=== PATIENT | male | born 1985 | race Caucasian/White ===

== ENCOUNTER → 2017-10-11 09:56 | Outpatient (CLI) | payer MEDICARE, SELFPAY ==
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
== END ==
PROVIDERS: Visit Provider Orthopaedic Surgery
DX: S62.102A Fracture of unspecified carpal bone, left wrist, initial encounter for closed fracture (principal)
CPT/HCPCS: 73110

== ENCOUNTER 2019-08-07 11:10 | Emergency (ER) | payer MEDICARE, SELFPAY ==
[2019-08-07 11:11] VITALS: BP 135/83; PULSE 96; RESP 16; TEMP 36.2; O2SAT 95; BMI 31.8
--- NOTE | 2019-08-07 11:16 | ED.DCSUM_ITS ---
History of Present Illness Chief Complaint: Abscess Informant: Patient Onset: Days Context: Gradual Onset Timing: Continuous Current Severity: Moderate Maximum Severity: Moderate Narrative: The patient is an otherwise healthy male with history of hypertension who presents to the emergency department with abdominal wall abscess. Patient states he felt like he had a hair that was ingrown. He tried to pick it out. Since then, the area is gotten more red. He said some scant drainage from it. He denies any fevers or chills. He has no history of immunosuppression or diabetes. He is otherwise been in his normal state of health. Prior similar symptoms: No Recent Illness/Hospitalization: No Past Medical History - Allergies and Home Meds Allergies/Adverse Reactions: Allergies No Known Allergies Allergy (Verified 08/07/19 11:11) Primary Care Physician: Care Physician,No Primary [Primary Care Provider] - Prior records reviewed: Yes Past Medical History: - - Hypertension Surgical History: no surgical history Smoking Status: Current every day smoker Review of Systems General: Denies: Chills, Fever, Sweats Eyes: Denies: Visual changes - bilaterally, Diplopia ENT: Denies: Rhinorrhea, Sore throat Cardiovascular: Denies: Chest pain, Palpitations Respiratory: Denies: Dyspnea, Cough, Dyspnea on exertion Gastrointestinal: Denies: Abdominal pain, Nausea, Vomiting, Diarrhea, Melena, Hematochezia Genitourinary: Denies: Dysuria, Hematuria, Frequency Musculoskeletal: Denies: Back pain, Extremity Pain Skin: Denies: Rash, Wounds Neurological: Denies: Headache, Weakness, Numbness Physical Exam Vital Signs/Narrative: Vital Signs Temp Pulse Resp BP Pulse Ox 08/07/19 11:11 97.2 F L 96 16 135/83 H 95 Inital Vital Signs reviewed: Yes General: Well nourished, Well developed, No Acute Distress Head: Normocephalic, Atraumatic Eyes: Perrl, EOMI ENT: Moist mucous membranes, No rhinorrhea Neck: Supple, Nontender Cardiovascular: Regular rate, Regular rhythm, No murmurs Respiratory: No distress, CTA bilaterally, Chest nontender Abdomen: Soft, Nondistended, Normal bowel sounds, Tender, - - Small 2 cm ovoid abscess in the right lower lateral aspect of the abdomen. Minimal surrounding cellulitis. No streaking. Back: Nontender, Normal Inspection Extremities: Nontender, No edema Skin: Normal color, No rash Neurological: Alert, Oriented x3, Cranial nerves II-XII grossly intact, Normal Strength, Normal Sensation Psychological: Normal affect, Normal Mood Diagnostic/Tx/Re-eval - Medical Decision Making The patient presents with abdominal wall abscess. There is some mild surr ounding cellulitis. He has no significant tenderness. He has no history of immunosuppression. Incision and drainage was performed and scant purulence was able to removed. The patient be started on Bactrim for the area of localized cellulitis. He was counseled on concerning symptoms and reasons to return. He was counseled to follow-up with his primary care physician in the next 24 to 48 hours for wound recheck or return to the emergency department if he has any worsening symptoms or is not improving. He is comfortable with this plan of care. Impression 1. 2 cm abdominal wall abscess with cellulitis 2. Incision and drainage Procedures Procedure(s): Incision and drainage was performed. The area was prepped with chlorhexidine. A total of 3 cc of lidocaine with epinephrine were injected in a stepwise fashion at the area of central fluctuance. 1 cm incision was made. Scant purulence was able to be expressed. The wound was explored. It was a shallow pocket that would not hold packing. The patient tolerated this without issue. ED Disposition - Plan for ED Patient: Instructions: ABSCESS, Incision and Drainage Prescriptions: Smz/Tmp Ds [Bactrim Ds] 1 tab PO BID #14 tab Prescription Printed Referrals: Care Physician,No Primary [Primary Care Provider] -
--- NOTE | 2019-08-07 11:56 | ED.RN ---
DISCHARGE INSTRUCTIONS GIVEN TO AND REVIEWED WITH PATIENT AND MOTHER, BOTH DENY QUESTIONS OR CONCERNS AND VOICE UNDERSTANDING OF DISCHARGE INSTRUCTIONS. PT AMBULATES OUT OF ROOM WITHOUT DIFFICULTY.
== END 2019-08-07 11:57 | disposition home or self-care (01) ==
LOC: ED 11:38
PROVIDERS: Emergency Provider Emergency Medicine
DX: L02.211 Cutaneous abscess of abdominal wall (principal); L03.311 Cellulitis of abdominal wall; I10 Essential (primary) hypertension; F17.200 Nicotine dependence, unspecified, uncomplicated; Z79.899 Other long term (current) drug therapy
CPT/HCPCS: 10060; 99283

== ENCOUNTER → 2020-09-02 08:04 | Outpatient (CLI) | payer MEDICARE, SELFPAY ==
[2020-09-02 08:31] LABS: Absolute Lymphocyte Count 1.51 X10^3/uL (0.83-4.51); Basophil# 0.05 X10^3/uL; Eosinophil# 0.12 X10^3/uL; Eosinophils% 2.3 % (0-5); Hematocrit 46.5 % (40-54); Lymphocyte # 1.51 X10^3/ul (4.0); Lymphocyte % 29.2 % (19-41); Mean Corp Hgb Conc 32.3 g/dL (32-36); Mean Corpuscular Volume 89.9 fL (80-94); Mean Platelet Vol. 9.4 fl (6.2-12.0); Monocyte# 0.52 X10^3/uL; NRBC Flagged by Analyzer 0 % (0-5); Neutrophil # 2.96 X10^3/uL (2.7-7.7); Neutrophil % 57.1 % (47-70); Platelet Count 252 K/mm3 (150-450); RBC Distribution Width CV 12.9 % (11.6-14.6); RBC Distribution Width SD 42.6 fl (35.1-43.9); Red Blood Count 5.17 M/mm3 (4.6-6.2); White Blood Count 5.2 K/mm3 (4.4-11.0)
[2020-09-02 09:03] LABS: AST(SGOT) 54 U/L (15-37); Alanine Aminotransfer ALT/SGPT 75 U/L (16-61); Alkaline Phosphatase 57 U/L (45-117); Anion Gap 3 (5-15); BUN 20 mg/dL (7-18); BUN/Creat Ratio 27.6 RATIO (10-20); Calcium,Total 8.9 mg/dL (8.5-10.1); Chloride 109 mmol/L (98-107); Cholesterol 110 mg/dL (200); Creatinine, Serum 0.72 mg/dL (0.70-1.30); EST Glomerular Filtration Rate 131 mL/min (>60); Est Glom Filt Rate - Afr Amer 159 mL/min (>60); Globulin 3.9 g/dL (2.2-4.2); Glucose 82 mg/dL (74-106); High Density Lipoprotein 22 mg/dL; Protein, Total 7.9 g/dL (6.4-8.2); Sodium Level 140 mmol/L (136-145); Triglycerides 106 mg/dL; Very Low Density Lipoprotein 21 mg/dL (5-40)
[2020-09-02 09:25] LABS: Vitamin D,25 Hydroxy 24.2 ng/mL
[2020-09-03 16:29] LABS: GGTP 18 U/L (15-85)
[2020-09-04 09:25] LABS: Hepatitis B Surface Antigen Non-Reactive (Nonreactive); Hepatitis C Antibody Non-Reactive (Nonreactive)
[2020-09-08 16:08] LABS: Endomysial Antibody IgA Negative (Negative)
[2020-09-08 16:33] LABS: Immunoglobulin A 220 mg/dL (90-386); t-Transglutaminase IgA <2 U/mL (0-3)
== END ==
DX: I10 Essential (primary) hypertension (principal); F17.200 Nicotine dependence, unspecified, uncomplicated; E55.9 Vitamin D deficiency, unspecified
CPT/HCPCS: 36415; 80053; 80061; 82306; 82784; 82977; 83516; 85025; 86255; 86803; 87340

== ENCOUNTER → 2020-10-03 10:07 | Outpatient (CLI) | payer MEDICARE, SELFPAY ==
[2020-10-03 11:22] LABS: AST(SGOT) 57 U/L (15-37); Alanine Aminotransfer ALT/SGPT 64 U/L (16-61); Albumin, Serum 3.9 g/dL (3.2-5.0); Alkaline Phosphatase 52 U/L (45-117); Bilirubin, Direct 0.13 mg/dL (0.00-0.30); Globulin 3.8 g/dL (2.2-4.2); Protein, Total 7.7 g/dL (6.4-8.2)
== END ==
PROVIDERS: Visit Provider Family Medicine
DX: R94.5 Abnormal results of liver function studies (principal)
CPT/HCPCS: 36415; 80076

== ENCOUNTER → 2020-11-10 08:34 | Outpatient (CLI) | payer MEDICARE, SELFPAY ==
[2020-11-10 11:39] LABS: AST(SGOT) 73 U/L (15-37); Alanine Aminotransfer ALT/SGPT 74 U/L (16-61)
== END ==
DX: R94.5 Abnormal results of liver function studies (principal)
CPT/HCPCS: 36415; 84450; 84460

== ENCOUNTER → 2020-11-27 07:32 | Outpatient (CLI) | payer MEDICARE, SELFPAY ==
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
== END ==
DX: R74.8 Abnormal levels of other serum enzymes (principal)
CPT/HCPCS: 76700

== ENCOUNTER → 2020-12-23 09:46 | Outpatient (CLI) | payer MEDICARE, SELFPAY | DX: R15.9 Full incontinence of feces (principal) | CPT/HCPCS: 82274 ==

== ENCOUNTER → 2021-01-14 09:52 | Outpatient (CLI) | payer MEDICARE, MEDICAID, SELFPAY ==
--- NOTE | 2021-01-14 09:57 | RAD_ITS ---
STUDY: X-RAY - LUMBAR SPINE REASON FOR EXAM: Male, 35 years old. LOW BACK PAIN TECHNIQUE: 3 view(s) of the lumbar spine were obtained. COMPARISON: Comparison is made with prior study dated 09/17/2016. FINDINGS: Normal lumbar lordosis. There is no substantial scoliosis. There is a normal alignment of the vertebrae. Normal vertebral bodies and endplates. Mild disc space narrowing at the L5-S1 and S1-S2 levels. Partial lumbarization of the S1 vertebrae. The soft tissue structures are unremarkable. RAD/Lumbar Spine 2 or 3 Views IMPRESSION: Degenerative changes of the spine, as detailed above. Electronically Signed: Gustavo Mortensen MD at 9:26 EDT , Service support ,
== END ==
DX: M54.5 Low back pain (principal)
CPT/HCPCS: 72100

== ENCOUNTER → 2021-01-31 14:45 | Outpatient (CLI) | payer MEDICARE, SELFPAY ==
[2021-01-31 15:56] LABS: T4 Free Direct 1.05 ng/dL (0.76-1.46); Thyroid Stim Hormone (TSH) 1.16 uIU/mL (0.358-3.74)
== END ==
PROVIDERS: Visit Provider Nurse Practitioner Adult Health
DX: R15.9 Full incontinence of feces (principal)
CPT/HCPCS: 36415; 84439; 84443

== ENCOUNTER → 2021-02-11 07:40 | Outpatient (CLI) | payer MEDICARE, MEDICAID, SELFPAY ==
--- NOTE | 2021-02-11 07:44 | CT_ITS ---
STUDY: CT LUMBAR SPINE WITH CONTRAST REASON FOR EXAM: Male, 35 years old. FULL INCONTINENCE OF FECES RADIATION DOSAGE (If Supplied By Facility): CTDIvol = ( 15.21 ) mGy, DLP = ( 441.88 ) mGycm TECHNIQUE: The patient was scanned in a multi detector CT scanner. High resolution transaxial imaging was performed following the intravenous administration of IV 100mL Isovue-300. Images were obtained from L1 to S1 vertebral level. Sagittal and coronal images were reconstructed. Individualized dose optimization techniques were used for this CT. COMPARISON: Comparison is made with prior radiographs dated 01/14/2021. FINDINGS: Normal lumbar lordosis. There is no substantial scoliosis. Normal vertebrae of the lumbar spine. L1-2: Normal endplates. Normal disc height and morphology. Normal bilateral facet joints. Normal central canal and bilateral lateral recesses. Normal bilateral intervertebral neural foramina. L2-3: Moderate size diffuse posterior disc bulge causing deformity of thecal sac and narrowing of the AP diameter of the canal. L3-4: Normal endplates. Normal disc height and morphology. Normal bilateral facet joints. Normal central canal and bilateral lateral recesses. Normal bilateral intervertebral neural foramina. L4-5: Mild degree of disc space narrowing at the L4-L5 level with the posterior spondylosis. This is slightly worse on the left side of midline with minimal compression of the thecal sac. L5-S1: Normal endplates. Normal disc height and morphology. Normal bilateral facet joints. Normal central canal and bilateral lateral recesses. Normal bilateral intervertebral neural foramina. Normal visualized paraspinous soft tissue structures. CT/Spine Lumbar WITH Contrast IMPRESSION: Moderate sized posterior disc bulge at the L2-L3 level causing moderate degree of narrowing of the spinal canal. Mild degree of disc space narrowing with posterior spondylosis worse on the left side of the midline. Electronically Signed: Gustavo Mortensen MD at 11:06 EDT , Service support ,
== END ==
PROVIDERS: PCP Nurse Practitioner Adult Health; Referring Provider Nurse Practitioner Adult Health; Visit Provider Nurse Practitioner Adult Health
DX: R15.9 Full incontinence of feces (principal)
CPT/HCPCS: 72132; Q9967

== ENCOUNTER → 2021-02-24 10:04 | Outpatient (CLI) | payer MEDICARE, MEDICAID, SELFPAY ==
[2021-02-24 11:24] LABS: AST(SGOT) 53 U/L (15-37); Alanine Aminotransfer ALT/SGPT 64 U/L (16-61); Alkaline Phosphatase 44 U/L (45-117)
== END ==
PROVIDERS: PCP Nurse Practitioner Adult Health; Referring Provider Nurse Practitioner Adult Health; Visit Provider Nurse Practitioner Adult Health
DX: R15.9 Full incontinence of feces (principal)
CPT/HCPCS: 36415; 84075; 84450; 84460

== ENCOUNTER → 2021-04-13 10:15 | Outpatient (CLI) | payer MEDICARE, MEDICAID, SELFPAY ==
[2021-04-13 11:16] LABS: Iron 152 ug/dL (65-175); Iron Binding Capacity,Total 476 ug/dL (250-450)
[2021-04-14 14:09] LABS: ANTINUCLEAR ANTIBODIES DIRECT Negative (Negative)
[2021-04-14 15:25] LABS: Alpha Antitrypsin Serum 148 mg/dL (95-164)
[2021-04-14 17:27] LABS: EBV Early Antigen IgG <9.0 U/mL (0.0-8.9); EBV-VCA IgG 30.4 U/mL (0.0-17.9)
== END ==
DX: R74.8 Abnormal levels of other serum enzymes (principal)
CPT/HCPCS: 36415; 82103; 83540; 83550; 86038; 86663; 86665

== ENCOUNTER 2021-04-20 09:27 | Emergency (ER) | payer MEDICARE, MEDICAID, SELFPAY ==
[2021-04-20 09:28] VITALS: BP 146/97; PULSE 108; RESP 16; TEMP 36.1; O2SAT 96; BMI 32.2
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
[2021-04-20 09:58] VITALS: PULSE 64; RESP 16
== END 2021-04-20 09:59 | disposition home or self-care (01) ==
LOC: ED 09:47
PROVIDERS: Emergency Provider Emergency Medicine
DX: S80.12XA Contusion of left lower leg, initial encounter (principal); V19.9XXA Pedal cyclist (driver) (passenger) injured in unspecified traffic accident, initial encounter; Y93.55 Activity, bike riding; Y92.9 Unspecified place or not applicable; Y99.9 Unspecified external cause status; I10 Essential (primary) hypertension; Z79.899 Other long term (current) drug therapy; F17.200 Nicotine dependence, unspecified, uncomplicated
CPT/HCPCS: 99282

== ENCOUNTER → 2021-07-27 08:56 | Outpatient (CLI) | payer MEDICARE, MEDICAID, SELFPAY ==
[2021-07-27 09:52] LABS: AST(SGOT) 36 U/L (15-37); Alanine Aminotransfer ALT/SGPT 47 U/L (16-61); Alkaline Phosphatase 47 U/L (45-117)
== END ==
PROVIDERS: Referring Provider Nurse Practitioner Adult Health; Visit Provider Nurse Practitioner Adult Health
DX: R15.9 Full incontinence of feces (principal)
CPT/HCPCS: 36415; 84075; 84450; 84460

== ENCOUNTER 2021-08-03 18:49 | Emergency (ER) | payer MEDICARE, MEDICAID, SELFPAY ==
[2021-08-03 18:51] VITALS: BP 153/97; PULSE 85; RESP 16; TEMP 36.8; O2SAT 94; BMI 33.2
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
[2021-08-03 21:04] VITALS: RESP 16
[2021-08-03 21:07] VITALS: BP 149/91; PULSE 74; RESP 20
[2021-08-03] MEDS: HYDROcodone Bitartrate/Apap 5/325 Tablet PO (21:08)
== END 2021-08-03 21:16 | disposition home or self-care (01) ==
LOC: ED 21:15
PROVIDERS: Emergency Provider Emergency Medicine; PCP Nurse Practitioner Adult Health
DX: S42.91XA Fracture of right shoulder girdle, part unspecified, initial encounter for closed fracture (principal); F17.210 Nicotine dependence, cigarettes, uncomplicated; I10 Essential (primary) hypertension; V13.4XXA Pedal cycle driver injured in collision with car, pick-up truck or van in traffic accident, initial encounter; Z79.899 Other long term (current) drug therapy
CPT/HCPCS: 73030; 73060; 99283

== ENCOUNTER 2021-12-04 09:46 | Outpatient (CLI) | payer MEDICARE, MEDICAID, SELFPAY ==
[2021-12-04 10:07] LABS: Absolute Lymphocyte Count 2.21 X10^3/uL (0.83-4.51); Absolute Neutrophil Count 3.5 X10^3/uL (2.0-7.7); Basophil# 0.06 X10^3/uL; Basophil% 0.9 % (0-1); Eosinophil# 0.17 X10^3/uL; Eosinophils% 2.6 % (0-5); Hematocrit 44.3 % (40-54); Hemoglobin 15.1 g/dL (13.0-16.5); Lymphocyte # 2.21 X10^3/ul (0.83-4.51); Lymphocyte % 33.2 % (19-41); Mean Corp Hgb Conc 34.1 g/dL (32-36); Mean Corpuscular Hgb 29.4 pg (27.0-32.0); Mean Corpuscular Volume 86.2 fL (80-94); Mean Platelet Vol. 9.4 fl (6.2-12.0); Monocyte# 0.72 X10^3/uL; Monocyte% 10.8 % (0-10); NRBC Flagged by Analyzer 0 % (0-5); Neutrophil # 3.48 X10^3/uL (2.7-7.7); Neutrophil % 52.2 % (47-70); Platelet Count 251 K/mm3 (150-450); RBC Distribution Width CV 12.9 % (11.6-14.6); RBC Distribution Width SD 40.6 fl (35.1-43.9); Red Blood Count 5.14 M/mm3 (4.6-6.2); White Blood Count 6.7 K/mm3 (4.4-11.0)
[2021-12-04 11:13] LABS: AST(SGOT) 61 U/L (15-37); Alanine Aminotransfer ALT/SGPT 72 U/L (16-61); Albumin, Serum 3.8 g/dL (3.2-5.0); Alkaline Phosphatase 45 U/L (45-117); Anion Gap 6 (5-15); BUN 21 mg/dL (7-18); BUN/Creat Ratio 30.4 RATIO (10-20); Calcium,Total 8.7 mg/dL (8.5-10.1); Chloride 109 mmol/L (98-107); Creatinine, Serum 0.69 mg/dL (0.70-1.30); EST Glomerular Filtration Rate 138 mL/min (>60); Est Glom Filt Rate - Afr Amer 167 mL/min (>60); Globulin 3.9 g/dL (2.2-4.2); Glucose 101 mg/dL (74-106); Potassium 3.9 mmol/L (3.5-5.1); Protein, Total 7.7 g/dL (6.4-8.2); Sodium Level 139 mmol/L (136-145)
== END 2021-12-04 23:59 | disposition home or self-care (01) ==
PROVIDERS: Referring Provider Nurse Practitioner Adult Health; Visit Provider Nurse Practitioner Adult Health
DX: I10 Essential (primary) hypertension (principal)
CPT/HCPCS: 36415; 80053; 85025

== ENCOUNTER → 2022-03-04 | Outpatient (CLI) | payer MEDICARE, MEDICAID, SELFPAY ==
[2022-03-04 10:07] LABS: AST(SGOT) 50 U/L (15-37); Alanine Aminotransfer ALT/SGPT 70 U/L (16-61); Albumin, Serum 3.8 g/dL (3.2-5.0); Alkaline Phosphatase 54 U/L (45-117); Anion Gap 6 (5-15); BUN 17 mg/dL (7-18); BUN/Creat Ratio 26.8 RATIO (10-20); Calcium,Total 9.2 mg/dL (8.5-10.1); Chloride 110 mmol/L (98-107); Creatinine, Serum 0.64 mg/dL (0.70-1.30); EST Glomerular Filtration Rate 151 mL/min (>60); Est Glom Filt Rate - Afr Amer 183 mL/min (>60); Globulin 3.8 g/dL (2.2-4.2); Glucose 96 mg/dL (74-106); Potassium 3.9 mmol/L (3.5-5.1); Protein, Total 7.6 g/dL (6.4-8.2); Sodium Level 140 mmol/L (136-145)
== END | disposition home or self-care (01) ==
LOC: LAB 08:34
DX: K76.89 Other specified diseases of liver (principal)
CPT/HCPCS: 36415; 80053

== ENCOUNTER → 2022-09-24 | Outpatient (CLI) | payer MEDICARE, MEDICAID, SELFPAY ==
[2022-09-24 11:56] LABS: AST(SGOT) 45 U/L (15-37); Alanine Aminotransfer ALT/SGPT 60 U/L (16-61); Albumin, Serum 3.7 g/dL (3.2-5.0); Alkaline Phosphatase 47 U/L (45-117); Anion Gap 9 (5-15); BUN 18 mg/dL (7-18); BUN/Creat Ratio 28.9 RATIO (10-20); Calcium,Total 8.7 mg/dL (8.5-10.1); Chloride 106 mmol/L (98-107); Creatinine, Serum 0.62 mg/dL (0.70-1.30); EST Glomerular Filtration Rate 154 mL/min (>60); Est Glom Filt Rate - Afr Amer 187 mL/min (>60); Globulin 3.7 g/dL (2.2-4.2); Glucose 91 mg/dL (74-106); Potassium 3.7 mmol/L (3.5-5.1); Protein, Total 7.4 g/dL (6.4-8.2); Sodium Level 139 mmol/L (136-145)
== END | disposition home or self-care (01) ==
LOC: LAB 10:19
PROVIDERS: Referring Provider Nurse Practitioner Family; Visit Provider Nurse Practitioner Family
DX: K76.89 Other specified diseases of liver (principal)
CPT/HCPCS: 36415; 80053

== ENCOUNTER → 2022-12-10 | Outpatient (CLI) | payer MEDICARE, MEDICAID, SELFPAY ==
[2022-12-10 12:40] LABS: Cholesterol 102 mg/dL (200); High Density Lipoprotein 20 mg/dL; Triglycerides 109 mg/dL; Very Low Density Lipoprotein 22 mg/dL (5-40)
== END | disposition home or self-care (01) ==
LOC: LAB 09:17
DX: K76.89 Other specified diseases of liver (principal)
CPT/HCPCS: 36415; 80061

== ENCOUNTER → 2023-04-08 | Outpatient (CLI) | payer MEDICARE, SELFPAY ==
--- NOTE | 2023-04-08 08:46 | US_ITS ---
EXAM: US ABDOMEN LIMITED, RIGHT UPPER QUADRANT CLINICAL INDICATION: DISEASES OF LIVER TECHNIQUE: Real-time ultrasound of the right upper quadrant with image documentation. COMPARISON: No relevant prior studies available. FINDINGS: LIVER: Increased echogenicity of the hepatic parenchyma. No intrahepatic biliary ductal dilation. GALLBLADDER: Unremarkable. No shadowing gallstone. No gallbladder wall thickening is demonstrated. No pericholecystic fluid. Negative sonographic Cook''s sign. COMMON BILE DUCT: 4 mm. The proximal common bile duct is within normal limits for the patient''s age. PANCREAS: Unremarkable as visualized. No focal abnormality is demonstrated in the pancreas. No pancreatic ductal dilatation. RIGHT KIDNEY: Unremarkable. There is no hydronephrosis. No shadowing calculus. No focal lesion or perinephric collection is demonstrated. US/Liver IMPRESSION: No acute findings in the right upper quadrant. Fatty infiltration of the liver. Electronically Signed: Rikki Duggan MD at 6:43 EDT ,
== END | disposition home or self-care (01) ==
LOC: US 08:31
PROVIDERS: Referring Provider Nurse Practitioner Family; Visit Provider Nurse Practitioner Family
DX: K76.89 Other specified diseases of liver (principal)
CPT/HCPCS: 76705

== ENCOUNTER 2023-12-02 10:02 | Emergency (ER) | payer MEDICARE, SELFPAY ==
[2023-12-02] VITALS (7 sets, daily range): BP systolic 118–138; BP diastolic 76–101; PULSE 72–98; RESP 16–17; TEMP 36.2–37.1; O2SAT 95–98; BMI 31.1
--- NOTE | 2023-12-02 10:30 | CT_ITS ---
STUDY: CT PELVIS WITH CONTRAST REASON FOR EXAM: Male, 38 years old. 3 day history of left perirectal abscess. RADIATION DOSAGE (If Supplied By Facility): CTDIvol = ( 28.21 ) mGy, DLP = ( 1085.03 ) mGycm TECHNIQUE: Transaxial imaging of the pelvis was performed without oral contrast. IV 75mL Isovue-300 was administered intravenously. Individualized dose optimization techniques were used for this CT. COMPARISON: None. FINDINGS: Normal urinary bladder. There is a 2.3 cm x 1.7 cm x 2.9 cm well-circumscribed fluid collection along the medial aspect of the left gluteal region corresponding to the perirectal abscess. There is evidence of increased markings in the surrounding subcutaneous fat. Normal visualized small intestine. Normal visualized colon. There is no pelvic fluid. There is no pelvic lymphadenopathy or mass lesion. Normal visualized pelvic arteries. Normal abdominal wall. Normal osseous structures. CT/Pelvis WITH IV Contrast IMPRESSION: Findings suggestive of a 2.3 cm x 1.7 cm x 2.9 cm left perirectal abscess. Electronically Signed: Gustavo Mortensen MD at 11:42 EDT ,
--- NOTE | 2023-12-02 10:31 | EDS_ITS ---
HPI History of Present Illness Chief Complaint: Abscess Informant: patient and parent Narrative Narrative: 38-year-old male presenting to the emergency department with a chief complaint of buttock abscess. Mom states he has had an abscess somewhere else on his body in the past that required emergency department evaluation. Patient states for about 3 to 4 days he has had some discomfort of the rectal area. He denies any fevers or chills. He states he has been able to have bowel movements but it has been difficult to clean due to pain. He denies any history of Crohn's disease or ulcerative colitis or other inflammatory bowel condition. He denies any ur inary symptoms. Currently treated with lisinopril for hypertension. [facility] Medical History Hypertension Home Medications lisinopril 10 mg tablet 10 mg PO DAILY 08/07/19 [History Last Taken Unknown] cholecalciferol (vitamin D3) 25 mcg (1,000 unit) capsule (Vitamin D3) 25 mcg PO DAILY 08/03/21 [History Last Taken Unknown] hydrocodone-acetaminophen 5-325mg 5mg-325mg 1 tab PO Q4H PRN pain 4 days #20 tabs 08/03/21 [Rx Last Taken Unknown] oxycodone-acetaminophen 5 mg-325 mg tablet 1 tab PO Q6H PRN PRN pain 5 days #20 TABLETS 12/02/23 [Rx Last Taken Unknown] sulfamethoxazole 800 mg-trimethoprim 160 mg tablet 1 tab PO BID #14 TABLETS 12/02/23 [Rx Last Taken Unknown] Allergy/AdvReac Type Severity Reaction Status Date / Time No Known Allergies Allergy Verified 12/02/23 10:05 Family History Mother Hypertension Surgical History H/O left wrist surgery Social History Smoking Status: Current every day smoker tobacco type: cigarettes alcohol intake: never ROS ROS ED Constitutional Constitutional ED: Denies chills or weight loss Eyes Eyes: Denies change in vision or diplopia ENT ENT ED: Denies ear pain, rhinorrhea or sore throat Cardiovascular Cardiovascular: Denies chest pain, orthopnea, palpitations or racing heartbeat Respiratory/Chest Respiratory/Chest: Denies cough, dyspnea or orthopnea Gastrointestinal Gastrointestinal: Reports other Details: Perianal pain ; Denies abdominal pain, diarrhea, nausea or vomiting Genitourinary Genitourinary ED: Denies dysuria, hematuria or urinary frequency Musculoskeletal Musculoskeletal: Denies arthralgias or myalgias Integumentary Reports abscess; Denies rash Neurologic Neurologic: Denies headache(s) or weakness Psychiatric Psychiatric: Denies anxiety, depression, suicidal ideation or suicidal thoughts Endocrine Endocrinology: Denies polydipsia, polyphagia or polyuria Allergic/Immunologic Allergic/Immunologic ED: Denies mouth swelling, tongue swelling or urticaria EXAM Physical Exam Const Vital Signs: 12/02/23 10:03 12/02/23 10:03 12/02/23 10:05 Temperature 98.1 F 98.1 F 98.1 F Temperature Source Temporal Temporal Temporal Pulse Rate 98 98 98 Respiratory Rate 16 16 16 Blood Pressure 118/101 H 118/101 H 118/101 H Blood Pressure Mean 106 106 106 Pulse Ox 97 97 97 Oxygen Delivery Method Room Air Room Air Room Air 12/02/23 11:17 12/02/23 12:00 12/02/23 13:00 Temperature 98.8 F 98.4 F 98 F Temperature Source Oral Oral Temporal Pulse Rate 89 84 73 Respiratory Rate 16 17 16 Blood Pressure 124/89 H 138/76 H 126/81 H Blood Pressure Mean 100 96 96 Pulse Ox 96 98 95 Oxygen Delivery Method Room Air Room Air Room Air Positive well nourished and well developed General Appearance ED: well developed HEENT Reports normocephalic, head/scalp atraumatic and moist mucous membranes Eyes PERRL and EOMs intact bilaterally Neck no lymphadenopathy, supple and no JVD Resp normal respiratory effort and clear to auscultation bilaterally Cardio regular rate, regular rhythm and no murmurs GI normal to inspection, nondistended, normoactive bowel sounds and non-tender Palpation: soft Narrative: Examination reveals some erythema of about 4 cm on the left buttock just lateral to the anus. I do not palpate any induration or fluctuance. The area is also covered in fecal matter. Patient has tenderness over the left aspect of the rectum on ZAIN. No blood. Back/Spine no CVA tenderness and normal ROM Extremity normal to inspection General Extremety ED: Negative for edema General Extremity: Negative for edema Neuro oriented x3 and CN's II-XII intact bilaterally Sensorium / Orientation: alert Motor Exam: strength 5/5 throughout Psych mental status grossly normal Mood & Affect: Negative for depressed or tearful Skin no rashes or lesions noted and no wounds MDM MDM MDM Narrative Medical decision making narrative: Patient provided informed consent for incision and drainage at the bedside. Patient received morphine Zofran. Creatinine 0.66. CT of abdomen pelvis is suggestive of a left perirectal abscess. Somewhat was applied to the area. I used the ultrasound to identify abscess that is about 1 cm deep to the skin tissue. While pushing on that area using the ultrasound probe I did note some purulence draining from the anus. the area was locally anesthetized using 1% lidocaine. I was able to visualize hemostats entering into the abscess. This resulted in a large amount of pus. The area was irrigated with sterile saline. About 12 inches of quarter inch packing was placed. I talked about home care. Warm bath soaks. Packing will need to be removed in 72 hours either by the patient or in follow-up. I will write for pain medication as well as antibiotics. Case was discussed with on-call surgery to help arrange follow-up History & Record Review Discussion w/independent historian: Patient and Family Lab Data Attestation: I reviewed the patient's lab results. Labs: Laboratory Results - last 24 hr 12/02/23 10:40 Sodium 139 Potassium 3.9 Chloride 109 H Carbon Dioxide 24.0 Anion Gap 6 BUN 16 Creatinine 0.66 L Estim Creat Clear Calc 178.53 Est GFR (MDRD) Af Amer 174 Est GFR (MDRD) Non-Af 144 BUN/Creatinine Ratio 24.4 H Glucose 97 Calcium 8.8 Radiography Diagnostic Testing: Clinical Impression(s) from Imaging Studies Pelvis CT 12/02/23 10:30 IMPRESSION: Findings suggestive of a 2.3 cm x 1.7 cm x 2.9 cm left perirectal abscess. Electronically Signed: Gustavo Mortensen MD at 11:42 EDT , Discharge Plan Triage Chief Complaint: Abscess ED Provider: Valdo Felipe Dx/Rx/DC Orders Clinical Impression: Pain, rectal, Abscess, perirectal Instructions: ED ABSCESS [facility] IandD Prescriptions: New oxycodone-acetaminophen [oxycodone-acetaminophen] 5-325 mg tablet 1 tab PO Q6H PRN PRN (Reason: pain) 5 Days Qty: 20 0RF sulfamethoxazole-trimethoprim [sulfamethoxazole-trimethoprim] 800-160 mg tablet 1 tab PO BID Qty: 14 0RF No Action lisinopril 10 MG tablet 10 mg PO DAILY cholecalciferol (vitamin D3) [Vitamin D3] 25 mcg (1,000 unit) Capsule 25 mcg PO DAILY hydrocodone-acetaminophen 5-325 mg tablet 1 tab PO Q4H PRN (Reason: pain) 4 Days Qty: 20 0RF Primary Care Provider: [facility] Gabbi Zurita Referrals: Jed Mathew MD [Med Staff - Active Staff] - As soon as possible Derrek Hay DO [Med Staff - Active Staff] - [facility] - Disposition Disposition: Home, Self Care
[2023-12-02 11:08] LABS: Anion Gap 6 (5-15); BUN 16 mg/dL (7-18); BUN/Creat Ratio 24.4 RATIO (10-20); Calcium,Total 8.8 mg/dL (8.5-10.1); Chloride 109 mmol/L (98-107); Creatinine, Serum 0.66 mg/dL (0.70-1.30); EST Glomerular Filtration Rate 144 mL/min (>60); Est Glom Filt Rate - Afr Amer 174 mL/min (>60); Estimated Creatinine Clearance 178.53 ml/min; Glucose 97 mg/dL (74-106); Potassium 3.9 mmol/L (3.5-5.1); Sodium Level 139 mmol/L (136-145)
[2023-12-02] MEDS: Morphine 4 MG/ML Syringe IV (11:14)
[2023-12-02] MEDS: Ondansetron 4 MG/2 ML Vial IV (11:15)
[2023-12-02] MEDS: Lidocaine/Epi/Tetracaine 50 ML 1 APPLIC TOPICAL (12:50)
[2023-12-02] MEDS: Lidocaine 1% (20 ml mdv) 20 ML Vial INFILT (14:11)
== END 2023-12-02 14:31 | disposition home or self-care (01) ==
PROVIDERS: Emergency Provider Emergency Medicine; Visit Provider Emergency Medicine
DX: K61.1 Rectal abscess (principal); I10 Essential (primary) hypertension; F17.210 Nicotine dependence, cigarettes, uncomplicated; Z79.899 Other long term (current) drug therapy
CPT/HCPCS: 10060; 72193; 80048; 96374; 96375; 99283; Q9967; J2405